=== PATIENT | female | born 1965 | race Two or more races ===

== ENCOUNTER 2019-10-15 17:28 | Emergency (ER) | payer MEDICAID, OTHER ==
[~2019-10-15] VITALS: Ht 172.7 cm; Wt 102.1 kg
[2019-10-15 21:23] LABS: Basophils # (auto) 0.1 10 ^3/uL (0-0.2); Basophils % (auto) 0.7 % (0.0-2.0); Eosinophils # (auto) 0.3 10 ^3/uL (0-0.8); Eosinophils % (auto) 2.9 % (0.0-7.0); Hematocrit 41.5 % (36.0-46.0); Hemoglobin 14.1 g/dL (12.2-16.2); Lymphocytes % (auto) 31.7 % (10.0-50.0); Mean Corpuscular Hemoglobin 28.1 pg (28.0-32.0); Mean Corpuscular Hgb Conc. 33.9 g/dL (32.0-36.0); Monocytes # (auto) 0.5 10 ^3/uL (0-1.3); Neutrophils # (auto) 5.7 10 ^3/uL (1.6-8.6); Neutrophils % (auto) 59.7 % (37.0-80.0); Nucleated Red Blood Cells % 0.1 %; Platelet Count (auto) 321 10^3/uL (140-450); Red Cell Distribution Width 14.8 % (11.8-14.3); White Blood Cell 9.6 10^3/uL (4.4-10.8)
[2019-10-15 21:30] LABS: Urine Bacteria FEW /hpf (None Seen); Urine Blood Negative /uL (Negative); Urine Specific Gravity 1.011 (1.001-1.035); Urine WBC 3 /hpf (0 - 5)
[2019-10-15 21:40] LABS: Alcohol, Urine < 3.0 mg/dL (0-5); Amphetamine Screen, Urine POSITIVE (NEGATIVE); Barbiturate Scree,Urine NEGATIVE (NEGATIVE); Benzodiazephine Screen, Urine NEGATIVE (NEGATIVE); Cannabinoid Screen, Urine POSITIVE (NEGATIVE); Cocaine Screen, Urine NEGATIVE (NEGATIVE); Opiate Scree,Urine NEGATIVE (NEGATIVE)
[2019-10-15 21:47] LABS: Phencyclidine Screen, Urine NEGATIVE (NEGATIVE)
[2019-10-15 21:47] LABS: Albumin 3.7 g/dL (3.4-5.0); Anion Gap 2 (5-15); BUN/Creatinine Ratio 20.6; Blood Alcohol < 3.0 mg/dL (0-5); Blood Urea Nitrogen 20 mg/dL (7-18); Calcium 9.1 mg/dL (8.5-10.1); Carbon Dioxide 31 mmol/L (21-32); Chloride 108 mmol/L (98-107); GFR African American 78 mL/min; GFR Non-African American 64 mL/min; Glucose 104 mg/dL (74-106); Magnesium 1.9 mg/dL (1.6-2.6); Potassium 3.8 mmol/L (3.5-5.1); Sodium 141 mmol/L (136-145)
[2019-10-15 21:50] LABS: Alanine Aminotransferase 44 U/L (13-56); Alkaline Phosphatase 121 U/L (45-117); Aspartate Aminotransferase 25 U/L (15-37); Bilirubin, Total 0.2 mg/dL (0.2-1.0); Total Protein 7.2 g/dL (6.4-8.2)
[2019-10-15 21:51] LABS: Acetaminophen < 2.0 ug/mL (10-30); Salicylate 1.8 mg/dL (2.8-20.0)
[2019-10-16 00:45] VITALS: BP 155/86
[2019-10-16] MEDS ORDERED: LORazepam 0.5 MG TAB PO ONE (00:45)
== END 2019-10-16 04:42 | disposition home or self-care (01) ==
LOC: ER 17:28
DX: F20.9 Schizophrenia, unspecified (principal); F41.9 Anxiety disorder, unspecified
CPT/HCPCS: 36415; 80053; 80307; 80320; 80329; 81001; 83735; 85025; 99283; J7030